=== PATIENT | female | born 1975 | race Hispanic/Latino ===

== ENCOUNTER 2018-07-07 06:50 | Observation (INO) | payer SELFPAY ==
[2018-07-07 07:32] LABS: Absolute Lymphocytes (CBC) 1.7 K/uL (0.7-4.9); Absolute Monocytes 0.7 K/uL (0.1-1.3); Absolute Neutrophil 6.6 K/uL (1.8-8.0); Basophils % 0.5 % (0-1.3); Eosinophils % 0.2 % (0-4.4); Hematocrit 40.7 % (36.0-45.0); Lymphocytes % 18.6 % (15.3-44.8); MCH 28.6 pg (27.0-35.0); MCV 86.1 fL (80-100); MPV 8.3 fL (7.6-11.3); RBC Red Blood Cell Count 4.73 M/uL (3.86-4.86)
[2018-07-07] MEDS ORDERED: NA CHLORIDE 0.9% 1,000 ML ONE ×3 (07:43→12:37)
[2018-07-07] MEDS ORDERED: HYDROCODONE/APAP 5/325 MG TAB ONE (07:43)
[2018-07-07 08:10] LABS: BUN Blood Urea Nitrogen 9 mg/dL (7-18); Bicarbonate 21 mmol/L (21-32); Glucose Level 123 mg/dL (74-106); HCG, Quantitative 13806 mIU/mL (1-3); Potassium 3.6 mmol/L (3.5-5.1); Sodium Level 138 mmol/L (136-145)
--- NOTE | 2018-07-07 09:03 | RAD REPORT ---
EXAM DESCRIPTION: US - Transvaginal OB - 07/07/2018 8:50 am CLINICAL HISTORY: Vaginal bleeding, patient believes she is 11 weeks Preliminary findings provided at the time of the study. COMPARISON: Endovaginal OB ultrasound April 2017 TECHNIQUE: Endovaginal sonography performed. FINDINGS: Endometrial stripe is 2 cm in thickness. Endometrium is heterogeneous likely containing he morrhagic material. There is no intrauterine gestational sac or sac remnant. No solid mass or polyp i dentifiable. No myometrial mass identifiable. Uterus is 10.5 x 5.8 x 6.2 cm. Both ovaries are identifiable. Normal blood flow seen in the ovarian stroma. Left ovary is larger collin n the right containing a 2.4 centimeter cyst. Low-level internal echoes are believed to be artifact. Aggressive left ovarian process is not seen. No blood or free fluid in the cul-de-sac. No adnexal mas s to suspect ectopic . IMPRESSION: Thickened heterogeneous endometrial cavity likely containing hemorrhagic material and th ickened endometrial tissue. No intrauterine gestational sac or sac remnant. No adnexal mass to suspect ectopic .
[2018-07-07] MEDS ORDERED: miSOPROStol 100 MCG TAB PO ONE (09:30)
[2018-07-07 10:17] LABS: Hematocrit 29.8 % (36.0-45.0)
--- NOTE | 2018-07-07 10:47 | ER ---
Nurse's Notes [facility] Name: Yusra Oates Age: 43 yrs Sex: Female : 1975 Arrival Date: 07/07/2018 Time: 06:51 Bed 6 Private MD: Diagnosis: Incomplete spontaneous without complication Presentation: 07/07 07:02 Presenting complaint: Patient states: Pt reports she started having lower pain ea yesterday, reports she passed a clot at 2 AM and started bleeding. Pt reports she is 11 weeks . Transition of care: patient was not received from another setting of care. Onset of symptoms was July 07, 2018. Risk Assessment: Do you want to hurt yourself or someone else? Patient reports no desire to harm self or others. Initial Sepsis Screen: Does the patient meet any 2 criteria? HR > 90 bpm. Does the patient have a suspected source of infection? No. Patient's initial sepsis screen is negative. Care prior to arrival: None. 07:02 Method Of Arrival: Wheelchair ea 07:02 Acuity: FERMIN 3 ea Triage Assessment: 07:13 General: Appears uncomfortable, Behavior is calm, cooperative, appropriate for age. ea Pain: Complains of pain in low back area. EENT: No signs and/or symptoms were reported regarding the EENT system. Neuro: Level of Consciousness is awake, alert, obeys commands, Oriented to person, place, time, situation. Cardiovascular: Cardiovascular: Patient's skin is warm and dry. Respiratory: Airway is patent Respiratory effort is even, unlabored, Respiratory pattern is regular, symmetrical. : Reports vaginal bleeding that is bright red, with clots, moderate flow. 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 - Social history:: Smoking status: Patient/guardian denies using tobacco. - Ebola Screening: : No symptoms or risks identified at this time. Screenin:16 Abuse screen: Denies threats or abuse. Nutritional screening: No deficits noted. ea Tuberculosis screening: No symptoms or risk factors identified. Fall Risk None identified. Assessment: 07:31 General: Appears in no apparent distress. Behavior is calm, cooperative. Pain: iw Complains of pain in suprapubic area, right lower quadrant and left lower quadrant. Neuro: Level of Consciousness is awake, alert, obeys commands, Oriented to person, place, time, situation, Moves all extremities. Full function. Cardiovascular: Patient's skin is warm and dry. Respiratory: Respiratory effort is even, unlabored, Respiratory pattern is regular, symmetrical. GI: Abdomen is non-distended. : Reports vaginal bleeding that is bright red, with clots. Derm: Skin is intact, is healthy with good turgor. Musculoskeletal: Range of motion: intact in all extremities. 07:50 Reassessment: pt states she needs to have a BM, pt placed on bed house in sitting iw position in bed, pt on bed house, passed moderate amount of stool, moderate amount of bright red clots, pt became diaphoretic and pale while on bed house, BP at 89/60, fluids infusing to LAC, pt laid back into supine position and cleaned of stool and blood, BP up to 106 systolic after cleaning. 08:25 Reassessment: pt transported to US via stretcher, with US tech. iw 09:01 Reassessment: Patient appears in no apparent distress at this time. Patient and/or iw family updated on plan of care and expected duration. Pain level reassessed. Patient is alert, oriented x 3, equal unlabored respirations, skin warm/dry/pink. pt back to room via stretcher, BP=92/54, pt states pain has decreased slightly, pain to low back area. 09:25 Reassessment: Patient is alert, oriented x 3, equal unlabored respirations, skin iw warm/dry/pink. orthostatics complete, pt heart rate up to 100 bpm when standing, Clarisse, DANIEL notified, new orders given, pt in NAD, updated on POC, family at bedside. 10:42 Reassessment: Patient appears in no apparent distress at this time. assisted Clarisse SANCHEZ iw with pelvic exam, removed clots and small amount of tissue, Clarisse to consult Dr. Hall in regards to plan of care. 12:41 Reassessment: Patient appears in no apparent distress at this time. Patient and/or iw family updated on plan of care and expected duration. Pain level reassessed. Patient is alert, oriented x 3, equal unlabored respirations, skin warm/dry/pink. pt c/o pain to lower back, medicated with tylenol 500 mg PO per floor orders, NS infusing to RAc at 100 mL/hr per floor orders. Vital Signs: 07:12 BP 151 / 76; Pulse 104; Resp 19; Pulse Ox 99% ; Weight 52.16 kg; Height 5 ft. 3 in. ea (160.02 cm); Pain 8/10; 07:29 BP 107 / 88; Pulse 82; Resp 16; Pulse Ox 100% on R/A; Pain 8/10; iw 07:58 BP 101 / 60; Pulse 61; Resp 16; Pulse Ox 100% on R/A; iw 08:05 BP 105 / 59; Pulse 63; Resp 16; Pulse Ox 100% on R/A; iw 08:14 BP 98 / 73; Pulse 62; Resp 16; Pulse Ox 98% ; Pain 6/10; iw 09:00 BP 92 / 54; Pulse 62; Resp 16; Pulse Ox 98% on R/A; Pain 5/10; iw 09:18 Temp 98.2(TE); jb1 09:20 BP 103 / 57 Supine; Pulse 64; Resp 16; Pulse Ox 99% on R/A; iw 09:23 BP 105 / 67 Sitting; Pulse 68; Resp 16; Pulse Ox 98% on R/A; iw 09:25 BP 91 / 57 Standing; Pulse 100; Resp 16; Pulse Ox 98% on R/A; iw 09:36 BP 94 / 71; Pulse 69; Resp 16; Pulse Ox 99% on R/A; iw 10:29 BP 117 / 94; Pulse 91; Resp 16; Pulse Ox 100% on R/A; iw 10:44 BP 122 / 68; Pulse 83; Resp 16; Pulse Ox 100% on R/A; iw 11:13 BP 121 / 72; Pulse 94; Resp 16; Pulse Ox 100% on R/A; iw 07:12 Body Mass Index 20.37 (52.16 kg, 160.02 cm) ea ED Course: 06:51 Patient arrived in ED. am2 06:54 Clarisse Davila FNP-C is PHCP. kb 06:54 Reymundo Flores MD is Attending Physician. kb 06:58 Catie Dumont, RN is Primary Nurse. iw 06:58 Arm band placed on right wrist. Patient placed in an exam room, on a stretcher, on ea pulse oximetry. 07:00 Inserted saline lock: 20 gauge in left antecubital area, using aseptic technique. Blood cc3 collected. 07:10 Triage completed. ea 07:16 Patient has correct armband on for positive identification. Bed in low position. Call ea light in reach. Side rails up X 1. 07:36 Radiology exam delayed due to lab results not completed at this time. (HCG) aa4 test not completed at this time. 07:58 Inserted saline lock: 18 gauge in right antecubital area, using aseptic technique. iw 08:51 US Transvaginal Ob In Process Unspecified. EDMS 10:44 Assist provider with pelvic exam: Set up pelvic tray. Performed by Clarisse MIMS Specimens sent to lab. POC passed, Patient tolerated well. 10:46 Precious Hall MD is Hospitalizing Provider. kb 13:05 Patient admitted, IV remains in place. iw Administered Medications: 07:35 Drug: NS 0.9% 1000 ml Route: IV; Rate: 1000 ml; Site: left antecubital; iw 08:35 Follow up: IV Status: Completed infusion iw 07:35 Drug: Banks 5 mg-325 mg 1 tabs Route: PO; iw 08:15 Follow up: Response: No adverse reaction iw 09:32 Drug: Cytotec 600 mcg Route: PO; iw 12:43 Follow up: Response: No adverse reaction iw 09:32 Drug: NS 0.9% 1000 ml Route: IV; Rate: 1000 ml; Site: right antecubital; iw 10:30 Follow up: IV Status: Completed infusion iw Outcome: 10:47 Decision to Hospitalize by Provider. kb 13:05 Admitted to Med/surg accompanied by tech, via stretcher, room 211, with chart, Report iw called to TURNER Murray 13:05 Condition: good 13:05 Discharge instructions given to patient, Instructed on the need for admit. 13:07 Patient left the ED. iw Signatures: Dispatcher [employer] EDMS Khoa Vale jb1 Clarisse Davila, HOME CARE MUSIC THERAPIST-C HOME CARE MUSIC THERAPIST-Ckb Catie Dumont, RN RN Melanie Acosta aa4 Melanie Young am2 Lisha Chairez RN RN Janet Cortes 3 Corrections: (The following items were deleted from the chart) 09:36 09:23 BP 105 / 67; Pulse 68bpm; Resp 16bpm; Pulse Ox 98% RA; iw 09:36 09:25 BP 91 / 57; Pulse 100bpm; Resp 16bpm; Pulse Ox 98% RA; iw
--- NOTE | 2018-07-07 10:47 | EDPHYS ---
Physician Documentation [facility] Name: Yusra Oates Age: 43 yrs Sex: Female : 1975 Arrival Date: 07/07/2018 Time: 06:51 Bed 6 Private MD: ED Physician Reymundo Flores HPI: 07/07 08:23 This 43 yrs old Female presents to ER via Wheelchair with complaints of kb Vaginal Bleeding. 08:23 The patient has experienced similar episodes in the past, a few times. The patient has kb not recently seen a physician. 08:23 The patient presents to the emergency department with vaginal bleeding, that is heavy, kb with clots. The estimated gestational age is 11 weeks. course: care: at a clinic. Previous pregnancies: in previous pregnancies patient has had. Associated signs and symptoms: Pertinent positives: abdominal pain, vaginal bleeding, Pertinent negatives: chest pain, diarrhea, dysuria, fever, frequency, nausea, ruptured membranes, seizure, shortness of breath, vaginal discharge, vomiting. Pt reports she started having back pain last night, then vaginal bleeding started at 0200 after passing a large clot. States the bleeding has been heavy with clots since then. Has had 2 previous miscarriages with same symptoms. Denies weakness, shortness of breath, dizziness, dyspnea upon exertion. . 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 - Social history:: Smoking status: Patient/guardian denies using tobacco. - Ebola Screening: : No symptoms or risks identified at this time. ROS: 08:23 Constitutional: Negative for fever, chills, and weight loss, Cardiovascular: Negative kb for chest pain, palpitations, and edema, Respiratory: Negative for shortness of breath, cough, wheezing, and pleuritic chest pain, MS/Extremity: Negative for injury and deformity, Skin: Negative for injury, rash, and discoloration, Neuro: Negative for headache, weakness, numbness, tingling, and seizure. 08:23 Abdomen/GI: Positive for abdominal cramps. 08:23 : Positive for vaginal bleeding. Exam: 08:23 Constitutional: This is a well developed, well nourished patient who is awake, alert, kb and in no acute distress. Head/Face: Normocephalic, atraumatic. Chest/axilla: Normal chest wall appearance and motion. Nontender with no deformity. No lesions are appreciated. Cardiovascular: Regular rate and rhythm with a normal S1 and S2. No gallops, murmurs, or rubs. Normal PMI, no JVD. No pulse deficits. Respiratory: Lungs have equal breath sounds bilaterally, clear to auscultation and percussion. No rales, rhonchi or wheezes noted. No increased work of breathing, no retractions or nasal flaring. Abdomen/GI: Soft, non-tender, with normal bowel sounds. No distension or tympany. No guarding or rebound. No evidence of tenderness throughout. Skin: Warm, dry with normal turgor. Normal color with no rashes, no lesions, and no evidence of cellulitis. MS/ Extremity: Pulses equal, no cyanosis. Neurovascular intact. Full, normal range of motion. Neuro: Awake and alert, GCS 15, oriented to person, place, time, and situation. Cranial nerves II-XII grossly intact. Motor strength 5/5 in all extremities. Sensory grossly intact. Cerebellar exam normal. Normal gait. 08:23 : Pelvic Exam: External exam: is normal, Speculum exam: moderate bleeding, blood clots in vaginal vault, no cervicitis, os that is open, no tissue in cervix is seen, no tissue in vagina is seen, the nurse was present for the exam. Vital Signs: 07:12 BP 151 / 76; Pulse 104; Resp 19; Pulse Ox 99% ; Weight 52.16 kg; Height 5 ft. 3 in. ea (160.02 cm); Pain 8/10; 07:29 BP 107 / 88; Pulse 82; Resp 16; Pulse Ox 100% on R/A; Pain 8/10; iw 07:58 BP 101 / 60; Pulse 61; Resp 16; Pulse Ox 100% on R/A; iw 08:05 BP 105 / 59; Pulse 63; Resp 16; Pulse Ox 100% on R/A; iw 08:14 BP 98 / 73; Pulse 62; Resp 16; Pulse Ox 98% ; Pain 6/10; iw 09:00 BP 92 / 54; Pulse 62; Resp 16; Pulse Ox 98% on R/A; Pain 5/10; iw 09:18 Temp 98.2(TE); jb1 09:20 BP 103 / 57 Supine; Pulse 64; Resp 16; Pulse Ox 99% on R/A; iw 09:23 BP 105 / 67 Sitting; Pulse 68; Resp 16; Pulse Ox 98% on R/A; iw 09:25 BP 91 / 57 Standing; Pulse 100; Resp 16; Pulse Ox 98% on R/A; iw 09:36 BP 94 / 71; Pulse 69; Resp 16; Pulse Ox 99% on R/A; iw 10:29 BP 117 / 94; Pulse 91; Resp 16; Pulse Ox 100% on R/A; iw 10:44 BP 122 / 68; Pulse 83; Resp 16; Pulse Ox 100% on R/A; iw 11:13 BP 121 / 72; Pulse 94; Resp 16; Pulse Ox 100% on R/A; iw 07:12 Body Mass Index 20.37 (52.16 kg, 160.02 cm) ea MDM: 06:55 Patient medically screened. kb 08:27 Data reviewed: vital signs, nurses notes. Data interpreted: Pulse oximetry: on room air kb is 98 %. Interpretation: normal. 09:00 Physician consultation: Precious Hall MD was contacted at 09:00, regarding consult, kb patient's condition. 10:42 Counseling: I had a detailed discussion with the patient and/or guardian regarding: the kb historical points, exam findings, and any diagnostic results supporting the discharge/admit diagnosis, lab results, radiology results, the need for further work-up and treatment in the hospital. Physician consultation: Precious Hall MD was contacted at 10:44, regarding admission, to labor and delivery, patient's condition, and will see patient in inpatient room. 07/07 07:03 Order name: Quantitative Hcg; Complete Time: 08:15 kb 07/07 07:03 Order name: Basic Metabolic Panel; Complete Time: 08:15 kb 07/07 07:03 Order name: CBC with Diff; Complete Time: 07:36 kb 07/07 07:03 Order name: Type And Screen; Complete Time: 08:15 kb 07/07 09:39 Order name: Hemoglobin; Complete Time: 10:25 kb 07/07 09:39 Order name: Hematocrit; Complete Time: 10:25 kb 07/07 07:03 Order name: IV Saline Lock; Complete Time: 07:18 kb 07/07 07:03 Order name: Labs collected and sent; Complete Time: 07:18 kb 07/07 07:30 Order name: US Transvaginal Ob; Complete Time: 09:05 kb 07/07 07:03 Order name: NPO; Complete Time: 07:18 kb 07/07 09:00 Order name: Orthostatics; Complete Time: 09:23 kb Administered Medications: 07:35 Drug: NS 0.9% 1000 ml Route: IV; Rate: 1000 ml; Site: left antecubital; iw 08:35 Follow up: IV Status: Completed infusion iw 07:35 Drug: Black 5 mg-325 mg 1 tabs Route: PO; iw 08:15 Follow up: Response: No adverse reaction iw 09:32 Drug: Cytotec 600 mcg Route: PO; iw 12:43 Follow up: Response: No adverse reaction iw 09:32 Drug: NS 0.9% 1000 ml Route: IV; Rate: 1000 ml; Site: right antecubital; iw 10:30 Follow up: IV Status: Completed infusion iw Disposition: 17:39 Co-signature as Attending Physician, Reymundo Flores MD I agree with the assessment and tushar plan of care. Disposition: 07/07/18 10:47 Hospitalization ordered by Precious Hall for Observation. Preliminary diagnosis is Incomplete spontaneous without complication. - Bed requested for Telemetry/MedSurg (observation). - Status is Observation. iw - Condition is Stable. - Problem is new. - Symptoms are unchanged. UTI on Admission? No Signatures: Dispatcher [employer] Clarisse Krause FNP-C FNP-Lolis Yoo RN Reymundo Franco MD MD cha Williams, Irene, RN Lisha Milton RN RN ea Corrections: (The following items were deleted from the chart) 12:03 10:47 Hospitalization Ordered by Precious Hall MD for Observation. Preliminary diagnosis dw is Incomplete spontaneous without complication. [facility]. Status is Observation. Condition is Stable. Problem is new. Symptoms are unchanged. UTI on Admission? No. kb 13:07 12:03 07/07/2018 10:47 Hospitalization Ordered by Precious Hall MD for Observation. iw Preliminary diagnosis is Incomplete spontaneous without complication. Bed requested for Telemetry/MedSurg (observation). Status is Observation. Condition is Stable. Problem is new. Symptoms are unchanged. UTI on Admission? No. dw
[2018-07-07] MEDS ORDERED: ACETAMINOPHEN 500 MG TAB ONE (12:37)
[2018-07-07 13:24] VITALS: O2SAT 100
[2018-07-07 13:39] VITALS: BMI 20.2
[2018-07-07] MEDS ORDERED: KETOROLAC 30 MG/ML INJ IV PRN (13:52)
[2018-07-07] MEDS ORDERED: NA CHLORIDE 0.9% 1,000 ML IV SCH (13:56)
[2018-07-07] MEDS ORDERED: ACETAMINOPHEN 500 MG TAB PO PRN (13:56)
[2018-07-07 17:58] VITALS: BP 110/53; TEMP 99
--- NOTE | 2018-07-08 02:10 | HP ---
Date of Admission: 07/07/2018 History Of Present Illness: Yusra is a 43-year-old, 3, para 0-0-2-0, LMP 05/09/2018, who p resented to the Emergency Department with heavy vaginal bleeding. The patient reports she began havi ng back pain last night, and vaginal bleeding started at 2:00 a.m. after passing large clots. The pa tiekenisha states that the bleeding has been heavy with clots since then. She has had 2 previous miscarri ages. The patient has been receiving some sort of fertility treatments in [place] and some home remed ies because she is trying to conceive. She is not with someone currently; however, she would like to have a baby. The patient does not have a doctor whom she goes to regularly. Past Medical History: Includes anemia. Past Surgical History: None. Family History: Noncontributory. Social History: Denies tobacco use. She is not . Lives at home with her brother. Review of Systems: Negative except for as noted in HPI. Physical Examination: General: The patient is resting in bed. Vital Signs: Blood pressure is 121/72, pulse of 76, respirations 18, temperature 97.0, O2 saturation is 98%. Head and Neck: Normocephalic, atraumatic. Neck is supple. Abdomen: Soft, nontender, nondistended. Bilateral Lower Extremities: No clubbing, cyanosis, or edema. Vaginal: Red bleeding noted on her pad. The patient had a transvaginal ultrasound performed. Ultra sound results reveal the endometrium is thickened, 2 cm. There are no adnexal masses. Laboratory Findings: Reveal a beta HCG of 13,000, hemoglobin was 13.5 at 7:00 a.m., was repeated at 9:45 was 9.9, hematocrit was 40.7, and then repeated and it was 29.8. Assessment And Plan: Yusra is a 43-year-old, 3, para 0-0-2-0, approximately 8 weeks gestat ion, who presents for a spontaneous . The patient has already been given Cytotec to complete the miscarriage. She is now doing well. Her vital signs are stable. We will continue to observe h er prior to discharge. HARMONY Voice ID: [id number]
--- NOTE | 2018-07-08 05:34 | DS ---
Date of Discharge: 07/07/2018 Yusra is a 43-year-old, 3, para 0-0-2-0, who presented for observation after suffering a sp ontaneous . The patient was given Cytotec to help resolve the . She is no longer b leeding at this time. She is having some spotting. Her pain has been controlled with Toradol. She has been given a prescription for Methergine as well as diclofenac to help manage her pain. Patient was recommended to have an HCG level repeated next week or prior to that if possible and also recomme nded to follow up with a doctor so that she can conceive safely since she is continuing to have miscarriages. Patient verbalizes understanding and states she will do so. Patient will be disc harged home. HARMONY Voice ID: [id number] Report ID: [id number]
== END 2018-07-07 16:48 | disposition home or self-care (01) ==
LOC: ER 06:50 → ERHOLD 10:55 → 2ND 12:50
PROVIDERS: ADMIT Student in an Organized Health Care Education/Training Program; ATTEND Student in an Organized Health Care Education/Training Program
DX: O03.9 Complete or unspecified spontaneous abortion without complication (principal)
CPT/HCPCS: 36415; 76817; 80048; 84702; 85014; 85018; 85025; 86850; 86900; 86901; 88305; 96360; 96361; 99285; G0378; J7030